=== PATIENT | male | born 1990 | race Asian ===

== ENCOUNTER 2020-03-19 14:11 | Emergency (ER) | payer MEDICAID ==
[~2020-03-19] VITALS: Ht 172.7 cm; Wt 61.2 kg
[2020-03-19 14:41] VITALS: BP 138/101; Ht 172.7 cm; Wt 61.2 kg
[2020-03-19 17:24] LABS: PLATELET COUNT 251 x10^3mcL (152-348); RED CELL DISTRIBUTION WIDTH 13.4 % (12.1-16.2)
[2020-03-19 17:45] LABS: CALCIUM 8.9 mg/dL (8.5-10.1); CARBON DIOXIDE 25.2 mmol/L (21-32); CHLORIDE SERUM 102 mmol/L (98-107); CREATININE SERUM 0.8 mg/dL (0.7-1.3); GFR1 > 60 mL/min; GLUCOSE SERUM 99 mg/dL (74-106); POTASSIUM SERUM 4.1 mmol/L (3.5-5.1); SODIUM SERUM 140 mmol/L (136-145)
[2020-03-19 17:49] LABS: ALBUMIN 4.4 g/dL (3.4-5.0); ALKALINE PHOSPHATASE 57 U/L (46-116); ALT/SGPT 32 U/L (16-63); AST/SGOT 21 U/L (15-37); BILIRUBIN TOTAL 0.7 mg/dL (0.20-1.00); LIPASE 116 IU/L (73-393); TOTAL PROTEIN, SERUM 7.8 g/dL (6.4-8.2)
[2020-03-19 17:50] LABS: BAND NEUTROPHIL 0 % (0-10); BASOPHIL 0 % (0-2); MONOCYTE 7 % (0-7); SEGMENTED NEUTROPHILS 82 % (37-75)
[2020-03-19 17:51] LABS: rbc morphology (normal/abnorm) NORMAL (NORMAL)
== END 2020-03-19 18:57 | disposition home or self-care (01) ==
LOC: ED 14:11
PROVIDERS: Emergency Medicine
DX: R10.13 Epigastric pain (principal); R11.0 Nausea